=== PATIENT | male | born 1945 | race African-American/Black ===

== ENCOUNTER → 2021-09-08 14:47 | Outpatient (CLI) | payer MEDICARE, SELFPAY ==
--- NOTE | ~2021-09-08 | MR_ITS ---
EXAMINATION: MR lumbar spine wo con DATE: 09/08/2021 15:21 INDICATION: Low back pain. Chronic bilateral hip pain. TECHNIQUE: Magnetic resonance imaging (MRI) of the lumbar spine was performed without intravenous con trast. Sequences included sagittal T2-weighted FSE, sagittal T2-weighted FS FSE, sagittal T1-weighted FSE, and axial T2-weighted FSE. COMPARISON: None FINDINGS: There is 3 mm retrolisthesis of L5 on S1. There is 3 mm anterolisthesis of T11 on T12. Vert ebral body heights are normal. There is moderately decreased disc at L1-L2 and L2-L3, severely decrea sed disc at L3-L4, mildly decreased disc at L4-L5, and severely decreased disc height at L5-S1 with e ndplate remodeling. The distal spinal cord signal intensity is normal. The conus medullaris is at T12 -L1. The following disc levels are specifically discussed: L1-L2: The disc is bulging. There is mild bilateral facet joint osteoarthritis. There is mild bilater al neural foraminal stenosis. There is mild central canal stenosis. L2-L3: The disc is bulging and has an annular fissure. There is mild bilateral facet joint osteoarthr itis. There is mild bilateral neural foraminal stenosis. There is mild central canal stenosis. L3-L4: The disc is bulging and has an annular fissure. There is severe bilateral facet joint osteoart hritis. There is moderate bilateral neural foraminal stenosis. There is mild central canal stenosis w ith posterior decompression. L4-L5: The disc is bulging and has an annular fissure. There is severe bilateral facet joint osteoart hritis. There is moderate bilateral neural foraminal stenosis. There is mild central canal stenosis w ith posterior decompression. L5-S1: The disc is bulging and has an annular fissure. There is mild bilateral facet joint osteoarthr itis. There is moderate bilateral neural foraminal stenosis. There is mild central canal stenosis. IMPRESSION: 1. Severe lumbar spondylosis. Reviewed, dictated and finalized at location A.
== END ==
DX: M25.552 Pain in left hip (principal); M25.551 Pain in right hip; G89.29 Other chronic pain; M47.896 Other spondylosis, lumbar region
CPT/HCPCS: 72148

== ENCOUNTER 2023-03-15 09:32 | Outpatient (CLI) | payer MEDICARE, SELFPAY ==
[2023-03-15 11:22] LABS: CRP < 0.5 mg/dL (<1.0)
[2023-03-15 11:30] LABS: Erythrocyte Sedimentation Rate 3 mm/hr (0-20)
== END 2023-03-15 09:33 | disposition home or self-care (01) ==
PROVIDERS: Visit Provider Internal Medicine Hematology & Oncology
DX: D72.829 Elevated white blood cell count, unspecified (principal)
CPT/HCPCS: 36415; 85652; 86140; 88184